=== PATIENT | male | born 1970 | race Caucasian/White ===

== ENCOUNTER 2019-02-18 11:02 | Emergency (ER) | payer OTHER ==
[~2019-02-18] VITALS: Ht 167.6 cm; Wt 75.0 kg
[2019-02-18] MEDS ORDERED: PROPARACAINE HCL 0.5% 15 ML OPHTHALMIC SOLUTION OU ONE (12:45)
[2019-02-18] MEDS ORDERED: FLUORESCEIN SODIUM 1 MG STRIP OU ONE (12:45)
[2019-02-18] MEDS ORDERED: NEOMYCIN/BACITRACIN/POLYMYXIN/HYDROCORT 3.5 GM OPHTHALMIC OINTMENT OS ONE (13:45)
[2019-02-18 13:59] VITALS: BP 152/95
== END 2019-02-18 14:21 | disposition home or self-care (01) ==
LOC: EMS 11:05
DX: S00.212A Abrasion of left eyelid and periocular area, initial encounter (principal); X58.XXXA Exposure to other specified factors, initial encounter; Y93.89 Activity, other specified; Y92.89 Other specified places as the place of occurrence of the external cause; Y99.8 Other external cause status